=== PATIENT | female | born 1955 | race African-American/Black ===

== ENCOUNTER 2016-10-08 07:35 | Observation (INO) | payer BC ==
[~2016-10-08] VITALS: Ht 152.4 cm; Wt 61.5 kg
--- NOTE | 2016-10-08 07:52 | PHYS DOC ---
Adult General Chief Complaint Chief Complaint: ABDOMINAL PAIN HPI HPI Patient is a 61 year old female who presents with epigastric pain. She states it started overnight where she was at work its sharp comes and goes and lasts about 3-5 minutes, she states nothing she does make some better or worse. She denies any shortness of breath or nausea with this but did state it radiates up into her chest. She states she has past medical history hypertension, dyslipidemia, type 2 diabetes. She denies any history of smoking. She denies she ever had any cardiac workup in the past. Currently she denies any pain. She has had a hysterectomy secondary to a "tumor". Review of Systems Review of Systems Constitutional: Denies fever or chills [] Eyes: Denies change in visual acuity, redness, or eye pain [] HENT: Denies nasal congestion or sore throat [] Respiratory: Denies cough or shortness of breath [] Cardiovascular: No additional information not addressed in HPI [] GI: Denies abdominal pain, nausea, vomiting, bloody stools or diarrhea [] : Denies dysuria or hematuria [] Musculoskeletal: Denies back pain or joint pain [] Integument: Denies rash or skin lesions [] Neurologic: Denies headache, focal weakness or sensory changes [] Endocrine: Denies polyuria or polydipsia [] Current Medications Current Medications Current Medications Medications (Trade) Dose Ordered Sig/Esteban Start Time Stop Time Status Last Admin Dose Admin Aspirin (Children'S Aspirin) 324 mg 1X ONCE 10/08/16 08:30 10/08/16 08:31 DC 10/08/16 08:31 324 MG Nitroglycerin (Nitrostat) 0.4 mg PRN Q5MIN PRN 10/08/16 08:15 10/09/16 08:14 10/08/16 08:32 0.4 MG Allergies Allergies Allergies Coded Allergies Type Severity Reaction Last Updated Verified morphine Allergy Intermediate Unknown 10/08/16 Yes Physical Exam Physical Exam Constitutional: Well developed, well nourished, no acute distress, non-toxic appearance. [] HENT: Normocephalic, atraumatic, bilateral external ears normal, oropharynx moist, no oral exudates, nose normal. [] Eyes: PERRLA, EOMI, conjunctiva normal, no discharge. [] Neck: Normal range of motion, no tenderness, supple, no stridor. [] Cardiovascular:Heart rate regular rhythm, no murmur [] Lungs & Thorax: Bilateral breath sounds clear to auscultation [] Abdomen: Bowel sounds normal, soft, no tenderness, no masses, no pulsatile masses. [] Skin: Warm, dry, no erythema, no rash. [] Back: No tenderness, no CVA tenderness. [] Extremities: No tenderness, no cyanosis, no clubbing, ROM intact, no edema. [] Neurologic: Alert and oriented X 3, normal motor function, normal sensory function, no focal deficits noted. [] Psychologic: Affect normal, judgement normal, mood normal. [] Current Patient Data Vital Signs Vital Signs Date Time Temp Pulse Resp B/P (MAP) Pulse Ox O2 Delivery O2 Flow Rate FiO2 10/08/16 08:32 96 181/98 10/08/16 07:40 98.2 18 98 Room Air 98.2 Lab Values Laboratory Tests Test 10/08/16 07:40 10/08/16 08:00 Urine Collection Type Unknown Urine Color Yellow Urine Clarity Clear Urine pH 7.5 Urine Specific [place] 1.015 Urine Protein Negative mg/dL (NEG-TRACE) Urine Glucose (UA) Negative mg/dL (NEG) Urine Ketones (Stick) Negative mg/dL (NEG) Urine Blood Negative (NEG) Urine Nitrite Negative (NEG) Urine Bilirubin Negative (NEG) Urine Urobilinogen Dipstick 0.2 mg/dL (0.2 mg/dL) Urine Leukocyte Esterase Negative (NEG) Urine RBC 0 /HPF (0-2) Urine WBC 0 /HPF (0-4) Urine Bacteria 0 /HPF (0-FEW) Urine Opiates Screen Neg (NEG) Urine Methadone Screen Neg (NEG) Urine Barbiturates Neg (NEG) Urine Phencyclidine Screen Neg (NEG) Urine Amphetamine/Methamphetamine Neg (NEG) Urine Benzodiazepines Screen Neg (NEG) Urine Cocaine Screen Neg (NEG) Urine Cannabinoids Screen Neg (NEG) Urine Ethyl Alcohol Neg (NEG) White Blood Count 8.0 x10^3/uL (4.0-11.0) Red Blood Count 4.50 x10^6/uL (3.50-5.40) Hemoglobin 12.9 g/dL (12.0-15.5) Hematocrit 39.3 % (36.0-47.0) Mean Corpuscular Volume 87 fL (79-100) Mean Corpuscular Hemoglobin 29 pg (25-35) Mean Corpuscular Hemoglobin Concent 33 g/dL (31-37) Red Cell Distribution Width 13.2 % (11.5-14.5) Platelet Count 289 x10^3/uL (140-400) Neutrophils (%) (Auto) 84 % (31-73) H Lymphocytes (%) (Auto) 12 % (24-48) L Monocytes (%) (Auto) 4 % (0-9) Eosinophils (%) (Auto) 0 % (0-3) Basophils (%) (Auto) 0 % (0-3) Neutrophils # (Auto) 6.7 x10^3uL (1.8-7.7) Lymphocytes # (Auto) 1.0 x10^3/uL (1.0-4.8) Monocytes # (Auto) 0.3 x10^3/uL (0.0-1.1) Eosinophils # (Auto) 0.0 x10^3/uL (0.0-0.7) Basophils # (Auto) 0.0 x10^3/uL (0.0-0.2) Prothrombin Time 11.7 SEC (11.7-14.0) Prothrombin Time INR 0.9 (0.8-1.1) Sodium Level 143 mmol/L (136-145) Potassium Level 4.7 mmol/L (3.5-5.1) Chloride Level 102 mmol/L (98-107) Carbon Dioxide Level 33 mmol/L (21-32) H Anion Gap 8 (6-14) Blood Urea Nitrogen 15 mg/dL (7-20) Creatinine 0.7 mg/dL (0.6-1.0) Estimated GFR (Cockcroft-Gault) 102.6 Glucose Level 132 mg/dL (70-99) H Calcium Level 9.8 mg/dL (8.5-10.1) Magnesium Level 1.7 mg/dL (1.8-2.4) L Total Bilirubin 0.2 mg/dL (0.2-1.0) Direct Bilirubin 0.1 mg/dL (0.0-0.2) Aspartate Amino Transferase (AST) 18 U/L (15-37) Alanine Aminotransferase (ALT) 22 U/L (14-59) Alkaline Phosphatase 137 U/L (46-116) H Creatine Kinase 188 U/L (26-192) Creatine Kinase MB (Mass) 1.4 ng/mL (0.0-3.6) Creatine Kinase MB Relative Index 0.7 % (0-4) Troponin I Quantitative < 0.017 ng/mL (0.000-0.055) PZ-Mmz-D-Type Natriuretic Peptide 150 pg/mL (0-124) H Total Protein 7.4 g/dL (6.4-8.2) Albumin 4.2 g/dL (3.4-5.0) Lipase 175 U/L (73-393) Laboratory Tests 10/08/16 08:00 Laboratory Tests 10/08/16 08:00 EKG EKG EKG shows sinus rhythm with rate of [address] elevations or T-wave inversions, normal axis, QTC 427 ms, as interpreted by me. Radiology/Procedures Radiology/Procedures [facility] [address] [place] [address] IMAGING REPORT Signed PATIENT: BENITO SWEENEY ACCOUNT: [id number] : 1955 LOCATION: ER AGE: 61 SEX: F EXAM STATUS: PRE ER ORD. PHYSICIAN: MUKUND GANDHI MD REASON: chest pain PROCEDURE: PORTABLE CHEST 1V Indication: Chest pain today. Technique: Upright portable chest radiograph was obtained. Comparison is from September 30, 2010. Findings: The lungs are clear. The cardiopulmonary silhouette is within normal limits. The bony structures are intact. Leads overlie the patient. Impression: No active pulmonary disease. DICTATED and SIGNED BY: ELIZABET BECKFORD MD DATE: 10/08/16818 CC: MUKUND GANDHI MD; LONG VILLATORO MD ~ Impressions: Chest pain Type 2 diabetes Hypertension Dyslipidemia Course & Med Decision Making Course & Med Decision Making Pertinent Labs and Imaging studies reviewed. (See chart for details) Labs, EKG did not show any acute abnormality's. Patient was given aspirin is being admitted for chest pain rule out. I'm not sure that her epigastric pain is not cardiac in nature. Patient's agreeable plan. Spoke with Dr. Octavia benjamin who wants patient presented to Dr. Villatoro for admission orders. He also recommends cardiology consultation. Dragon Disclaimer Dragon Disclaimer This electronic medical record was generated, in whole or in part, using a voice recognition dictation system. Departure Departure Impression: Primary Impression: Chest pain Disposition: 09 ADMITTED INPATIENT Admitting Physician: Long Villatoro Condition: STABLE Referrals: LONG VILLATORO MD (PCP) Problem Qualifiers Primary Impression: Chest pain Chest pain type: unspecified Qualified Codes: R07.9 - Chest pain, unspecified MUKUND GANDHI MD Oct 08, 2016 07:52
--- NOTE | 2016-10-08 08:09 | EKG ---
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
[2016-10-08] MEDS ORDERED: NITROGLYCERIN SUBLINGUAL 0.4 MG BOTTLE OF 25. SL PRN (08:15)
--- NOTE | 2016-10-08 08:22 | RAD ---
Indication: Chest pain today. Technique: Upright portable chest radiograph was obtained. Comparison is from September 30, 2010. Findings: The lungs are clear. The cardiopulmonary silhouette is within normal limits. The bony structures are intact. Leads overlie the patient. Impression: No active pulmonary disease.
[2016-10-08 08:30] LABS: BASO % 0 % (0-3); EOS % 0 % (0-3); HEMATOCRIT 39.3 % (36.0-47.0); HEMOGLOBIN 12.9 g/dL (12.0-15.5); LYMPH % 12 % (24-48); MEAN CORPUSCULAR HEMOGLOBIN 29 pg (25-35); MEAN CORPUSCULAR HGB CONC 33 g/dL (31-37); MEAN CORPUSCULAR VOLUME 87 fL (79-100); MONO % 4 % (0-9); NEUT % 84 % (31-73); PLATELET COUNT 289 x10^3/uL (140-400); RED CELL DISTRIBUTION WIDTH 13.2 % (11.5-14.5)
[2016-10-08] MEDS ORDERED: ASPIRIN CHEWABLE 81 MG TABLET. PO ONE (08:30)
[2016-10-08 08:32] LABS: BILIRUBIN,URINE NEGATIVE (NEG); GLUCOSE,URINE NEGATIVE (NEG); NITRITE,URINE NEGATIVE (NEG); PH,URINE 7.5; PROTEIN,URINE NEGATIVE (NEG-TRACE); UROBILINOGEN,URINE 0.2 mg/dL (0.2 mg/dL)
[2016-10-08 08:33] LABS: CALCIUM 9.8 mg/dL (8.5-10.1); CREATININE 0.7 mg/dL (0.6-1.0); GFR 102.6; POTASSIUM 4.7 mmol/L (3.5-5.1)
[2016-10-08 08:38] LABS: BARBITURATES NEG (NEG); BENZODIAZEPINES NEG (NEG); CANNABINOIDS NEG (NEG); COCAINE NEG (NEG); METHADONE NEG (NEG); OPIATES NEG (NEG); PHENCYCLIDINE NEG (NEG)
[2016-10-08 08:38] LABS: ALBUMIN 4.2 g/dL (3.4-5.0); DIRECT BILIRUBIN 0.1 mg/dL (0.0-0.2); MAGNESIUM 1.7 mg/dL (1.8-2.4); TOTAL BILIRUBIN 0.2 mg/dL (0.2-1.0); TOTAL PROTEIN 7.4 g/dL (6.4-8.2)
[2016-10-08 08:46] LABS: CKMB MASS 1.4 ng/mL (0.0-3.6)
[2016-10-08 09:45] LABS: BACTERIA,URINE 0 /HPF (0-FEW); RBC,URINE 0 /HPF (0-2); WBC,URINE 0 /HPF (0-4)
[2016-10-08 09:46] LABS: INR 0.9 (0.8-1.1); PROTHROMBIN TIME PATIENT 11.7 SEC (11.7-14.0)
[2016-10-08] MEDS ORDERED: ONDANSETRON PF 4 MG/2 ML VIAL. IV PRN (10:15)
[2016-10-08] MEDS ORDERED: LIDO:MAALOX:DONNATAL 1:1:1 15 ML SINGLE DOSE SWSW ONE (11:00)
--- NOTE | 2016-10-08 11:17 | PDOC2 ---
NIECY PALOMINO WELT MAKER 10/08/16 1117: CARDIAC CONSULT DATE OF CONSULT Date of Consult DATE: 10/08/16 TIME: 11:10 REASON FOR CONSULT Reason for Consult: Chest pain REFERRING PHYSICIAN Referring Physician: Romelia SOURCE Source: Chart review, Patient HISTORY OF PRESENT ILLNESS HISTORY OF PRESENT ILLNESS This is a pleasant 61 yo female admitted for complains of epigastric and chest pain. Reports that she has been having epigastric tenderness but mainly when she eats spicy food which is almost all the time. Yesterday this became severe that it thread to her chest to her throat area. No notable palpitations, SOA, ARNOLD, or vomiting. She has been taking zyrtec for it but no pepcid or PPI. Denies any CAD, VTE, falls or injury. She has DM but verbalized control but she does not check her BP. PAST MEDICAL HISTORY Cardiovascular: HTN, Hyperlipidemia Pulmonary: No pertinent hx CENTRAL NERVOUS SYSTEM: Other (No pertinent history) GI: GERD Heme/Onc: No pertinent hx Hepatobiliary: No pertinent hx Psych: No pertinent hx Musculoskeletal: Osteoarthritis Rheumatologic: No pertinent hx Infectious disease: No pertinent hx ENT: No pertinent hx Renal/: No pertinent hx Endocrine: Diabetes (2) Dermatology: No pertinent hx PAST SURGICAL HISTORY Past Surgical History: Hysterectomy FAMILY HISTORY Family History: Heart Disease (mother) SOCIAL HISTORY Smoke: No ALCOHOL: none Drugs: None Lives: with Family CURRENT MEDICATIONS CURRENT MEDICATIONS Current Medications Medications (Trade) Dose Ordered Sig/Esteban Route PRN Reason Start Time Stop Time Status Last Admin Dose Admin Aspirin (Children'S Aspirin) 324 mg 1X ONCE PO 10/08/16 08:30 10/08/16 08:31 DC 10/08/16 08:31 Nitroglycerin (Nitrostat) 0.4 mg PRN Q5MIN PRN SL CP RATING > 1/10 10/08/16 08:15 10/09/16 08:14 10/08/16 08:32 Multi-Ingredient Mouthwash/Gargle (Gi Cocktail Single Dose) 15 ml 1X ONCE SWSW 10/08/16 11:00 10/08/16 11:01 DC 10/08/16 10:36 ALLERGIES ALLERGIES: Coded Allergies: morphine (Verified Allergy, Intermediate, Unknown, 10/08/16) Pt unsure of reaction. ROS Review of System 14 point ROS evaluated with pertinent positives noted per HPI PHYSICAL EXAM General: Alert, Oriented X3, Cooperative, No acute distress HEENT: Atraumatic, Mucous membr. moist/pink Lungs: Clear to auscultation, Normal air movement Heart: Regular rate (SR), Normal S1, Normal S2, No murmurs Abdomen: Soft, No tenderness Extremities: No cyanosis, No edema Skin: No breakdown, No significant lesion Neuro: Normal speech, Sensation intact Psych/Mental Status: Mental status NL, Mood NL MUSCULOSKELETAL: Osteoarthritic changes both hands VITALS VITALS Vital Signs Date Time Temp Pulse Resp B/P (MAP) Pulse Ox O2 Delivery O2 Flow Rate FiO2 10/08/16 10:52 91 18 167/83 (111) 98 Room Air 10/08/16 07:40 98.2 98.2 LABS Lab: Laboratory Tests Test 10/08/16 07:40 10/08/16 08:00 Urine Collection Type Unknown Urine Color Yellow Urine Clarity Clear Urine pH 7.5 Urine Specific [place] 1.015 Urine Protein Negative mg/dL (NEG-TRACE) Urine Glucose (UA) Negative mg/dL (NEG) Urine Ketones (Stick) Negative mg/dL (NEG) Urine Blood Negative (NEG) Urine Nitrite Negative (NEG) Urine Bilirubin Negative (NEG) Urine Urobilinogen Dipstick 0.2 mg/dL (0.2 mg/dL) Urine Leukocyte Esterase Negative (NEG) Urine RBC 0 /HPF (0-2) Urine WBC 0 /HPF (0-4) Urine Bacteria 0 /HPF (0-FEW) Urine Opiates Screen Neg (NEG) Urine Methadone Screen Neg (NEG) Urine Barbiturates Neg (NEG) Urine Phencyclidine Screen Neg (NEG) Urine Amphetamine/Methamphetamine Neg (NEG) Urine Benzodiazepines Screen Neg (NEG) Urine Cocaine Screen Neg (NEG) Urine Cannabinoids Screen Neg (NEG) Urine Ethyl Alcohol Neg (NEG) White Blood Count 8.0 x10^3/uL (4.0-11.0) Red Blood Count 4.50 x10^6/uL (3.50-5.40) Hemoglobin 12.9 g/dL (12.0-15.5) Hematocrit 39.3 % (36.0-47.0) Mean Corpuscular Volume 87 fL (79-100) Mean Corpuscular Hemoglobin 29 pg (25-35) Mean Corpuscular Hemoglobin Concent 33 g/dL (31-37) Red Cell Distribution Width 13.2 % (11.5-14.5) Platelet Count 289 x10^3/uL (140-400) Neutrophils (%) (Auto) 84 % (31-73) Lymphocytes (%) (Auto) 12 % (24-48) Monocytes (%) (Auto) 4 % (0-9) Eosinophils (%) (Auto) 0 % (0-3) Basophils (%) (Auto) 0 % (0-3) Neutrophils # (Auto) 6.7 x10^3uL (1.8-7.7) Lymphocytes # (Auto) 1.0 x10^3/uL (1.0-4.8) Monocytes # (Auto) 0.3 x10^3/uL (0.0-1.1) Eosinophils # (Auto) 0.0 x10^3/uL (0.0-0.7) Basophils # (Auto) 0.0 x10^3/uL (0.0-0.2) Prothrombin Time 11.7 SEC (11.7-14.0) Prothromb Time International Ratio 0.9 (0.8-1.1) Sodium Level 143 mmol/L (136-145) Potassium Level 4.7 mmol/L (3.5-5.1) Chloride Level 102 mmol/L (98-107) Carbon Dioxide Level 33 mmol/L (21-32) Anion Gap 8 (6-14) Blood Urea Nitrogen 15 mg/dL (7-20) Creatinine 0.7 mg/dL (0.6-1.0) Estimated GFR (Cockcroft-Gault) 102.6 Glucose Level 132 mg/dL (70-99) Calcium Level 9.8 mg/dL (8.5-10.1) Magnesium Level 1.7 mg/dL (1.8-2.4) Total Bilirubin 0.2 mg/dL (0.2-1.0) Direct Bilirubin 0.1 mg/dL (0.0-0.2) Aspartate Amino Transf (AST/SGOT) 18 U/L (15-37) Alanine Aminotransferase (ALT/SGPT) 22 U/L (14-59) Alkaline Phosphatase 137 U/L (46-116) Creatine Kinase 188 U/L (26-192) Creatine Kinase MB (Mass) 1.4 ng/mL (0.0-3.6) Creatine Kinase MB Relative Index 0.7 % (0-4) Troponin I Quantitative < 0.017 ng/mL (0.000-0.055) [id number]-[id number]-Type Natriuretic Peptide 150 pg/mL (0-124) Total Protein 7.4 g/dL (6.4-8.2) Albumin 4.2 g/dL (3.4-5.0) Lipase 175 U/L (73-393) ASSESSMENT/PLAN ASSESSMENT/PLAN 1. Atypical CP: likely GERD exacerbation 2. Accelerated HTN: possible hypertensive heart disease 3. HLP 4. DM2 Recommendations 1. Resume lisinopril and HCTZ. Add norvasc. Labetolol IV PRN. 2. Daily ECASA. PPI. Replace Mg 3. TSH, lipids, A1C. TTE in AM. Trend troponin 4. Discussed GERD prevention Problems: KEVEN GAN MD 10/08/16 1250: CARDIAC CONSULT ALLERGIES ALLERGIES: Coded Allergies: morphine (Verified Allergy, Intermediate, Unknown, 10/08/16) Pt unsure of reaction. ASSESSMENT/PLAN ASSESSMENT/PLAN Patient seen and examined. Agree with CLOTH BALE HEADER's assessment and plan. CP with atypical features and most probably GI etiology. Resume home meds and add norvasc for better BP control. Check 2D echo to assess LV function and rule out WMA. Thank you for your consultation. Problems: NIECY PALOMINO APRN Oct 08, 2016 11:17 KEVEN GNA MD Oct 08, 2016 12:50
[2016-10-08] MEDS ORDERED: MAGNESIUM SULFATE 2GM 50 ML IV ONE (11:30)
[2016-10-08 11:49] LABS: CHOLESTEROL/HDL RATIO 1.9
[2016-10-08 12:08] VITALS: BP 174/89
[2016-10-08] MEDS ORDERED: LABETALOL 20 MG/4 ML DISP.SYRIN. IVP PRN (12:15)
[2016-10-08] MEDS: LISINOPRIL 40 MG TABLET. PO SCH (13:00)
[2016-10-08] MEDS: amLODIPine BESYLATE 10 MG TABLET PO SCH (13:00)
[2016-10-08] MEDS: hydroCHLOROthiazide 12.5 MG CAPSULE PO SCH (13:00)
--- NOTE | 2016-10-08 14:29 | PDOC ---
Provider Note Provider Note Pt seen.H&P dictated. #[id number] PRATIK CONDE MD Oct 08, 2016 14:29
[2016-10-08] MEDS ORDERED: DEXTROSE 50% 25 GM / 50ML DISP.SYRIN. IV PRN (14:30)
[2016-10-08 14:54] VITALS: BP 153/94
[2016-10-08] MEDS ORDERED: LIDO:MAALOX:DONNATAL 1:1:1 15 ML SINGLE DOSE SWSW PRN (15:45)
--- NOTE | 2016-10-08 15:46 | HP ---
ADMIT DATE: 10/08/2016 LOCATION: 246. ATTENDING PHYSICIAN: Magalie Villatoro MD. REASON FOR ADMISSION TO THE HOSPITAL: Chest pain. HISTORY OF PRESENT ILLNESS: The patient is a 61-year-old female with history of diabetes, hypertension, hyperlipidemia, patient of Dr. Magalie Villatoro. She was having epigastric pain started this morning that progressively worse and could not sleep well. This morning, came to the Emergency Room. EKG negative for ischemia. Troponin was negative, was admitted to the hospital. She has risk factors including diabetes, hypertension, hyperlipidemia. PAST MEDICAL HISTORY: Hypertension, hyperlipidemia, GERD symptoms. PAST SURGICAL HISTORY: She had hysterectomy and a lump in the left breast biopsied, was negative. PERSONAL HISTORY: No history of smoking, alcohol, drug abuse or spicy foods. FAMILY HISTORY: Mother has heart disease. ALLERGIES: To MORPHINE. MEDICATIONS AT HOME: She takes Lantus 20, lisinopril 40 with 12.5 hydrochlorothiazide, pravastatin 20 mg daily, metformin 500 mg twice daily. REVIEW OF SYMPTOMS: RESPIRATORY: Denies any shortness of breath. GASTROINTESTINAL: Has some heartburn symptoms. Denies any diarrhea or blood in the stools. Rest of the 14-system was reviewed and negative. PHYSICAL EXAMINATION: GENERAL: The patient is not in any distress, comfortable, has some coughing spells. VITAL SIGNS: Temperature 98, pulse 93, respirations 18, blood pressure 200/97, 98 on room air. HEENT: Head is atraumatic. Pupils equal. Oral cavity: No congestion. NECK: Supple. Thyroid not enlarged. JVD not elevated. CHEST: Symmetrical. CARDIOVASCULAR: S1, S2. No murmurs. LUNGS: Clear to auscultation. No wheezing. ABDOMEN: Soft, no mass palpable. EXTERNAL GENITALIA: No Fair. RECTAL: Deferred. EXTREMITIES: No calf tenderness, no edema. NEUROLOGIC: Cranial nerves intact. Power 5/5. Moving all extremities. LABORATORY DATA: Shows a white count of 8, hemoglobin 13, platelets 285. Electrolytes show sodium 143, potassium 4.7, chloride 102, bicarbonate 33, BUN 15, creatinine 0.7, glucose 132, magnesium 1.7. LFTs were normal. Lipase was normal TSH was good. INR 11.7. UA was negative. Chest x-ray, no acute pulmonary disease. EKG, no acute ischemic changes. FINAL IMPRESSION: 1. Chest pain for evaluation. 2. Symptoms look like gastroesophageal reflux disease. 3. Insulin-dependent diabetes. 4. Hypertension. 5. Hyperlipidemia. PLAN: At this time, was admitted to the hospital. Cardiology was consulted. Serial cardiac enzymes, EKG, Echo and stress test out pt if no other etiology for CP. Has also had a GI consult. we will do a gallbladder sonogram to make sure there are no gallstones causing problems. PRATIK CONDE MD DR: MELISSA/evita JOB#: [id number] / [id number] MAGALIE Duffy MD [facility]
[2016-10-08] MEDS: PANTOPRAZOLE 40 MG TABLET.DR. PO SCH (16:08)
[2016-10-08] MEDS: INSULIN ASPART 300 UNITS/3 ML INSULN.PEN SQ SCH (17:00)
[2016-10-08] MEDS: metFORMIN 500 MG TABLET PO SCH (18:23)
[2016-10-08 19:55] VITALS: BP 152/90
[2016-10-08] MEDS ORDERED: SIMVASTATIN 20 MG TABLET PO SCH (21:00)
[2016-10-08] MEDS ORDERED: INSULIN DETEMIR 300 UNITS/3 ML INSULN.PEN. SQ SCH (21:00)
[2016-10-08 23:01] VITALS: BP 113/58
[2016-10-09 02:26] VITALS: BP 115/62
[2016-10-09 05:55] LABS: BASO % 0 % (0-3); CALCIUM 10.4 mg/dL (8.5-10.1); CREATININE 0.6 mg/dL (0.6-1.0); EOS % 0 % (0-3); GFR 122.6; HEMATOCRIT 39.7 % (36.0-47.0); HEMOGLOBIN 13.4 g/dL (12.0-15.5); LYMPH # 3.1 x10^3/uL (1.0-4.8); LYMPH % 28 % (24-48); MEAN CORPUSCULAR HEMOGLOBIN 29 pg (25-35); MEAN CORPUSCULAR HGB CONC 34 g/dL (31-37); MEAN CORPUSCULAR VOLUME 86 fL (79-100); MONO % 7 % (0-9); NEUT % 64 % (31-73); PLATELET COUNT 332 x10^3/uL (140-400); POTASSIUM 4.2 mmol/L (3.5-5.1); RED BLOOD COUNT 4.61 x10^6/uL (3.50-5.40); RED CELL DISTRIBUTION WIDTH 13.2 % (11.5-14.5); WHITE BLOOD COUNT 11.1 x10^3/uL (4.0-11.0)
[2016-10-09 07:14] VITALS: BP 112/68
[2016-10-09] MEDS: metFORMIN 500 MG TABLET PO SCH (08:00)
[2016-10-09] MEDS: INSULIN ASPART 300 UNITS/3 ML INSULN.PEN SQ SCH ×2 (08:00→12:00)
[2016-10-09] MEDS ORDERED: ASPIRIN ENTERIC COATED 81 MG TABLET.DR. PO SCH (08:00)
[2016-10-09] MEDS: amLODIPine BESYLATE 10 MG TABLET PO SCH (09:00)
[2016-10-09 10:53] VITALS: BP 118/65
[2016-10-09] MEDS: hydroCHLOROthiazide 12.5 MG CAPSULE PO SCH (10:54)
[2016-10-09] MEDS: PANTOPRAZOLE 40 MG TABLET.DR. PO SCH (10:54)
[2016-10-09 10:55] VITALS: BP 118/65
[2016-10-09] MEDS: LISINOPRIL 40 MG TABLET. PO SCH (10:55)
--- NOTE | 2016-10-09 12:30 | PDOC ---
PROGRESS NOTES Subjective Subjective CP better Objective Objective Vital Signs Date Time Temp Pulse Resp B/P (MAP) Pulse Ox O2 Delivery O2 Flow Rate FiO2 10/09/16 10:55 79 118/65 10/09/16 10:53 98.6 18 96 Room Air 98.6 Intake and Output 10/09/16 07:00 Intake Total 1320 ml Output Total 2200 ml Balance -880 ml Intake Oral 1320 ml Output Urine Total 2200 ml Physical Exam Abdomen: Soft, No tenderness Heart: Regular rate (SR), Normal S1, Normal S2, No murmurs Extremities: No cyanosis, No edema General: Alert, Oriented X3, Cooperative, No acute distress HEENT: Atraumatic, Mucous membr. moist/pink Lungs: Clear to auscultation, Normal air movement Neuro: Normal speech, Sensation intact Psych/Mental Status: Mental status NL, Mood NL Skin: No breakdown, No significant lesion Assessment Assessment 1. Atypical CP: likely GERD exacerbation. MN ruled out. 2D echo to rule out wall motion abnormalities pending 2. Accelerated HTN: better controlled since admission 3. HLP - statins 4. DM2 - per IM Plan Plan of Care Problems Medical Problems: (1) Chest pain Status: Acute Comment Review of Relevant I have reviewed the following items jayden (where applicable) has been applied. Labs Laboratory Tests Test 10/08/16 13:09 10/08/16 16:15 10/08/16 16:46 10/08/16 20:50 Glucose (Fingerstick) 90 mg/dL (70-99) 87 mg/dL (70-99) 85 mg/dL (70-99) Troponin I Quantitative < 0.017 ng/mL (0.000-0.055) Test 10/08/16 22:00 10/09/16 04:00 10/09/16 07:17 Troponin I Quantitative < 0.017 ng/mL (0.000-0.055) White Blood Count 11.1 x10^3/uL (4.0-11.0) Red Blood Count 4.61 x10^6/uL (3.50-5.40) Hemoglobin 13.4 g/dL (12.0-15.5) Hematocrit 39.7 % (36.0-47.0) Mean Corpuscular Volume 86 fL (79-100) Mean Corpuscular Hemoglobin 29 pg (25-35) Mean Corpuscular Hemoglobin Concent 34 g/dL (31-37) Red Cell Distribution Width 13.2 % (11.5-14.5) Platelet Count 332 x10^3/uL (140-400) Neutrophils (%) (Auto) 64 % (31-73) Lymphocytes (%) (Auto) 28 % (24-48) Monocytes (%) (Auto) 7 % (0-9) Eosinophils (%) (Auto) 0 % (0-3) Basophils (%) (Auto) 0 % (0-3) Neutrophils # (Auto) 7.2 x10^3uL (1.8-7.7) Lymphocytes # (Auto) 3.1 x10^3/uL (1.0-4.8) Monocytes # (Auto) 0.8 x10^3/uL (0.0-1.1) Eosinophils # (Auto) 0.0 x10^3/uL (0.0-0.7) Basophils # (Auto) 0.0 x10^3/uL (0.0-0.2) Sodium Level 141 mmol/L (136-145) Potassium Level 4.2 mmol/L (3.5-5.1) Chloride Level 100 mmol/L (98-107) Carbon Dioxide Level 33 mmol/L (21-32) Anion Gap 8 (6-14) Blood Urea Nitrogen 12 mg/dL (7-20) Creatinine 0.6 mg/dL (0.6-1.0) Estimated GFR (Cockcroft-Gault) 122.6 Glucose Level 43 mg/dL (70-99) Calcium Level 10.4 mg/dL (8.5-10.1) Glucose (Fingerstick) 74 mg/dL (70-99) Medications Current Medications Amlodipine Besylate (Norvasc) 10 mg DAILY PO ; Start 10/08/16 at 13:00 Aspirin (Ecotrin) 81 mg DAILYWBKFT PO Last administered on 10/09/16 10:54; Start 10/09/16 at 08:00 Dextrose (Dextrose 50%-Water Syringe) 12.5 gm PRN Q15MIN PRN IV SEE COMMENTS; Start 10/08/16 at 14:30 Hydrochlorothiazide (Microzide) 12.5 mg DAILY PO Last administered on 10:54; Start 10/08/16 at 13:00 Insulin Aspart (NovoLOG) 0-7 UNITS TIDWMEALS SQ ; Start 10/08/16 at 17:00 Insulin Detemir (Levemir) 20 units QHS SQ Last administered on 10/08/16 21:07 ; Start 10/08/16 at 21:00 Lisinopril (Prinivil) 40 mg DAILY PO Last administered on 10/09/16 10:55; Start 10/08/16 at 13:00 Metformin HCl (Glucophage) 500 mg BIDWMEALS PO Last administered on 10/08/16 18:23; Start 10/08/16 at 17:00 Multi-Ingredient Mouthwash/Gargle (Gi Cocktail Single Dose) 30 ml PRN QID PRN SWSW CHEST PAIN; Start 10/08/16 at 15:45 Pantoprazole Sodium (Protonix) 40 mg DAILYAC PO Last administered on 10/09/16 10:54; Start 10/08/16 at 13:00 Simvastatin (Zocor) 20 mg HS PO Last administered on 10/08/16 21:04; Start at 21:00 Vitals/I & O Vital Sign - Last 24 Hours 10/08/16 10/08/16 10/08/16 10/08/16 14:54 19:30 19:55 23:01 Temp 99.8 99.7 99.3 99.8 99.7 99.3 Pulse 85 80 85 Resp 18 18 20 B/P (MAP) 153/94 (113) 152/90 (110) 113/58 (76) Pulse Ox 95 96 O2 Delivery Room Air Room Air Room Air Room Air 10/09/16 10/09/16 10/09/16 10/09/16 02:26 07:14 08:00 10:53 Temp 99.2 98.2 98.6 99.2 98.2 98.6 Pulse 89 89 86 Resp 18 18 18 B/P (MAP) 115/62 (79) 112/68 (83) 118/65 (82) Pulse Ox 96 97 96 O2 Delivery Room Air Room Air Room Air Room Air 10/09/16 10:55 Pulse 79 B/P (MAP) 118/65 Intake and Output 10/08/16 10/08/16 10/09/16 15:00 23:00 07:00 Intake Total 300 ml 800 ml 220 ml Output Total 300 ml 900 ml 1000 ml Balance 0 ml -100 ml -780 ml KEVEN GAN MD Oct 09, 2016 12:30
--- NOTE | 2016-10-09 12:38 | PDOC2 ---
CONSULT Date of Consult Date of Consult DATE: 10/09/16 TIME: 12:33 Reason for Consult Reason for Consult: Cholelithiasis by U/S Referring Physician Referring Physician: Octavia Identification/Chief Complaint Chief Complaint No complaints today Problems: Source Source: Patient History of Present Illness Reason for Visit: 61 yo female admitted to the hospital with 1 day history of epigastric pain radiating into the chest. Cardiac workup negative. U/S og the abdomen showed gallstones no Pan's sign no pericholic inflammation. Past Medical History Cardiovascular: HTN, Hyperlipidemia Pulmonary: No pertinent hx CENTRAL NERVOUS SYSTEM: Other (No pertinent history) GI: GERD Heme/Onc: No pertinent hx Hepatobiliary: No pertinent hx Psych: No pertinent hx Musculoskeletal: Osteoarthritis Rheumatologic: No pertinent hx Infectious disease: No pertinent hx ENT: No pertinent hx Renal/: No pertinent hx Endocrine: Diabetes (2) Dermatology: No pertinent hx Past Surgical History Past Surgical History: Hysterectomy Family History Family History: Heart Disease (mother) Social History No ALCOHOL: none Drugs: None Lives: with Family Current Problem List Problem List Problems Medical Problems: (1) Chest pain Status: Acute Current Medications Current Medications Current Medications Aspirin (Children'S Aspirin) 324 mg 1X ONCE PO Last administered on 10/08/16 08:31; Start 10/08/16 at 08:30; Stop 10/08/16 at 08:31; Status DC Nitroglycerin (Nitrostat) 0.4 mg PRN Q5MIN PRN SL CP RATING > 1/10 Last administered on 10/08/16 08:32; Start 10/08/16 at 08:15; Stop 10/09/16 at 08:14 ; Status DC Ondansetron HCl (Zofran) 4 mg PRN Q8HRS PRN IV NAUSEA/VOMITING; Start 10/08/16 at 10:15; Stop 10/09/16 at 10:14; Status DC Multi-Ingredient Mouthwash/Gargle (Gi Cocktail Single Dose) 15 ml 1X ONCE SWSW Last administered on 10/08/16 10:36; Start 10/08/16 at 11:00; Stop 10/08/16 at 11:01; Status DC Magnesium Sulfate/ Dextrose 50 ml @ 25 mls/hr 1X ONCE IV Last administered on 10/08/16 16:08; Start 10/08/16 at 11:30; Stop 10/08/16 at 13:29; Status DC Aspirin (Ecotrin) 81 mg DAILYWBKFT PO Last administered on 10/09/16 10:54; Start 10/09/16 at 08:00 Lisinopril (Prinivil) 40 mg DAILY PO Last administered on 10/09/16 10:55; Start 10/08/16 at 13:00 Hydrochlorothiazide (Microzide) 12.5 mg DAILY PO Last administered on 10:54; Start 10/08/16 at 13:00 Amlodipine Besylate (Norvasc) 10 mg DAILY PO ; Start 10/08/16 at 13:00 Pantoprazole Sodium (Protonix) 40 mg DAILYAC PO Last administered on 10/09/16 10:54; Start 10/08/16 at 13:00 Labetalol HCl (Normodyne) 20 mg PRN Q2HR PRN IVP HYPERTENSION, SEE COMMENTS; Start 10/08/16 at 12:15 Insulin Aspart (NovoLOG) 0-7 UNITS TIDWMEALS SQ ; Start 10/08/16 at 17:00 Dextrose (Dextrose 50%-Water Syringe) 12.5 gm PRN Q15MIN PRN IV SEE COMMENTS; Start 10/08/16 at 14:30 Insulin Detemir (Levemir) 20 units QHS SQ Last administered on 10/08/16 21:07 ; Start 10/08/16 at 21:00 Simvastatin (Zocor) 20 mg HS PO Last administered on 10/08/16 21:04; Start at 21:00 Multi-Ingredient Mouthwash/Gargle (Gi Cocktail Single Dose) 30 ml PRN QID PRN SWSW CHEST PAIN; Start 10/08/16 at 15:45 Metformin HCl (Glucophage) 500 mg BIDWMEALS PO Last administered on 10/08/16 18:23; Start 10/08/16 at 17:00 Allergies Allergies: Coded Allergies: morphine (Verified Allergy, Intermediate, Unknown, 10/08/16) Pt unsure of reaction. Physical Exam General: Alert, Oriented X3, Cooperative, No acute distress HEENT: Atraumatic, EOMI Lungs: Clear to auscultation, Normal air movement Heart: Regular rate, No murmurs Abdomen: Normal bowel sounds, Soft, No tenderness Extremities: No edema Skin: No significant lesion Neuro: Normal speech Psych/Mental Status: Mental status NL Vitals VITALS Vital Signs Date Time Temp Pulse Resp B/P (MAP) Pulse Ox O2 Delivery O2 Flow Rate FiO2 10/09/16 10:55 79 118/65 10/09/16 10:53 98.6 18 96 Room Air 98.6 Labs Labs Laboratory Tests Test 10/08/16 07:40 10/08/16 08:00 10/08/16 13:09 10/08/16 16:15 Urine Collection Type Unknown Urine Color Yellow Urine Clarity Clear Urine pH 7.5 Urine Specific [place] 1.015 Urine Protein Negative mg/dL (NEG-TRACE) Urine Glucose (UA) Negative mg/dL (NEG) Urine Ketones (Stick) Negative mg/dL (NEG) Urine Blood Negative (NEG) Urine Nitrite Negative (NEG) Urine Bilirubin Negative (NEG) Urine Urobilinogen Dipstick 0.2 mg/dL (0.2 mg/dL) Urine Leukocyte Esterase Negative (NEG) Urine RBC 0 /HPF (0-2) Urine WBC 0 /HPF (0-4) Urine Bacteria 0 /HPF (0-FEW) Urine Opiates Screen Neg (NEG) Urine Methadone Screen Neg (NEG) Urine Barbiturates Neg (NEG) Urine Phencyclidine Screen Neg (NEG) Urine Amphetamine/Methamphetamine Neg (NEG) Urine Benzodiazepines Screen Neg (NEG) Urine Cocaine Screen Neg (NEG) Urine Cannabinoids Screen Neg (NEG) Urine Ethyl Alcohol Neg (NEG) White Blood Count 8.0 x10^3/uL (4.0-11.0) Red Blood Count 4.50 x10^6/uL (3.50-5.40) Hemoglobin 12.9 g/dL (12.0-15.5) Hematocrit 39.3 % (36.0-47.0) Mean Corpuscular Volume 87 fL (79-100) Mean Corpuscular Hemoglobin 29 pg (25-35) Mean Corpuscular Hemoglobin Concent 33 g/dL (31-37) Red Cell Distribution Width 13.2 % (11.5-14.5) Platelet Count 289 x10^3/uL (140-400) Neutrophils (%) (Auto) 84 % (31-73) Lymphocytes (%) (Auto) 12 % (24-48) Monocytes (%) (Auto) 4 % (0-9) Eosinophils (%) (Auto) 0 % (0-3) Basophils (%) (Auto) 0 % (0-3) Neutrophils # (Auto) 6.7 x10^3uL (1.8-7.7) Lymphocytes # (Auto) 1.0 x10^3/uL (1.0-4.8) Monocytes # (Auto) 0.3 x10^3/uL (0.0-1.1) Eosinophils # (Auto) 0.0 x10^3/uL (0.0-0.7) Basophils # (Auto) 0.0 x10^3/uL (0.0-0.2) Prothrombin Time 11.7 SEC (11.7-14.0) Prothromb Time International Ratio 0.9 (0.8-1.1) Sodium Level 143 mmol/L (136-145) Potassium Level 4.7 mmol/L (3.5-5.1) Chloride Level 102 mmol/L (98-107) Carbon Dioxide Level 33 mmol/L (21-32) Anion Gap 8 (6-14) Blood Urea Nitrogen 15 mg/dL (7-20) Creatinine 0.7 mg/dL (0.6-1.0) Estimated GFR (Cockcroft-Gault) 102.6 Glucose Level 132 mg/dL (70-99) Hemoglobin A1c 5.8 % (4.8-5.6) Calcium Level 9.8 mg/dL (8.5-10.1) Magnesium Level 1.7 mg/dL (1.8-2.4) Total Bilirubin 0.2 mg/dL (0.2-1.0) Direct Bilirubin 0.1 mg/dL (0.0-0.2) Aspartate Amino Transf (AST/SGOT) 18 U/L (15-37) Alanine Aminotransferase (ALT/SGPT) 22 U/L (14-59) Alkaline Phosphatase 137 U/L (46-116) Creatine Kinase 188 U/L (26-192) Creatine Kinase MB (Mass) 1.4 ng/mL (0.0-3.6) Creatine Kinase MB Relative Index 0.7 % (0-4) Troponin I Quantitative < 0.017 ng/mL (0.000-0.055) < 0.017 ng/mL (0.000-0.055) XC-Ftv-F-Type Natriuretic Peptide 150 pg/mL (0-124) Total Protein 7.4 g/dL (6.4-8.2) Albumin 4.2 g/dL (3.4-5.0) Triglycerides Level 27 mg/dL (0-150) Cholesterol Level 182 mg/dL (0-200) LDL Cholesterol, Calculated 79 mg/dL (0-100) VLDL Cholesterol, Calculated 5 mg/dL (0-40) Non-HDL Cholesterol Calculated 84 mg/dL (0-129) HDL Cholesterol 98 mg/dL (40-60) Cholesterol/HDL Ratio 1.9 Lipase 175 U/L (73-393) Thyroid Stimulating Hormone (TSH) 0.508 uIU/mL (0.358-3.74) Glucose (Fingerstick) 90 mg/dL (70-99) Test 10/08/16 16:46 10/08/16 20:50 10/08/16 22:00 10/09/16 04:00 Glucose (Fingerstick) 87 mg/dL (70-99) 85 mg/dL (70-99) Troponin I Quantitative < 0.017 ng/mL (0.000-0.055) White Blood Count 11.1 x10^3/uL (4.0-11.0) Red Blood Count 4.61 x10^6/uL (3.50-5.40) Hemoglobin 13.4 g/dL (12.0-15.5) Hematocrit 39.7 % (36.0-47.0) Mean Corpuscular Volume 86 fL (79-100) Mean Corpuscular Hemoglobin 29 pg (25-35) Mean Corpuscular Hemoglobin Concent 34 g/dL (31-37) Red Cell Distribution Width 13.2 % (11.5-14.5) Platelet Count 332 x10^3/uL (140-400) Neutrophils (%) (Auto) 64 % (31-73) Lymphocytes (%) (Auto) 28 % (24-48) Monocytes (%) (Auto) 7 % (0-9) Eosinophils (%) (Auto) 0 % (0-3) Basophils (%) (Auto) 0 % (0-3) Neutrophils # (Auto) 7.2 x10^3uL (1.8-7.7) Lymphocytes # (Auto) 3.1 x10^3/uL (1.0-4.8) Monocytes # (Auto) 0.8 x10^3/uL (0.0-1.1) Eosinophils # (Auto) 0.0 x10^3/uL (0.0-0.7) Basophils # (Auto) 0.0 x10^3/uL (0.0-0.2) Sodium Level 141 mmol/L (136-145) Potassium Level 4.2 mmol/L (3.5-5.1) Chloride Level 100 mmol/L (98-107) Carbon Dioxide Level 33 mmol/L (21-32) Anion Gap 8 (6-14) Blood Urea Nitrogen 12 mg/dL (7-20) Creatinine 0.6 mg/dL (0.6-1.0) Estimated GFR (Cockcroft-Gault) 122.6 Glucose Level 43 mg/dL (70-99) Calcium Level 10.4 mg/dL (8.5-10.1) Test 10/09/16 07:17 Glucose (Fingerstick) 74 mg/dL (70-99) Laboratory Tests Test 10/08/16 13:09 10/08/16 16:15 10/08/16 16:46 10/08/16 20:50 Glucose (Fingerstick) 90 mg/dL (70-99) 87 mg/dL (70-99) 85 mg/dL (70-99) Troponin I Quantitative < 0.017 ng/mL (0.000-0.055) Test 10/08/16 22:00 10/09/16 04:00 10/09/16 07:17 Troponin I Quantitative < 0.017 ng/mL (0.000-0.055) White Blood Count 11.1 x10^3/uL (4.0-11.0) Red Blood Count 4.61 x10^6/uL (3.50-5.40) Hemoglobin 13.4 g/dL (12.0-15.5) Hematocrit 39.7 % (36.0-47.0) Mean Corpuscular Volume 86 fL (79-100) Mean Corpuscular Hemoglobin 29 pg (25-35) Mean Corpuscular Hemoglobin Concent 34 g/dL (31-37) Red Cell Distribution Width 13.2 % (11.5-14.5) Platelet Count 332 x10^3/uL (140-400) Neutrophils (%) (Auto) 64 % (31-73) Lymphocytes (%) (Auto) 28 % (24-48) Monocytes (%) (Auto) 7 % (0-9) Eosinophils (%) (Auto) 0 % (0-3) Basophils (%) (Auto) 0 % (0-3) Neutrophils # (Auto) 7.2 x10^3uL (1.8-7.7) Lymphocytes # (Auto) 3.1 x10^3/uL (1.0-4.8) Monocytes # (Auto) 0.8 x10^3/uL (0.0-1.1) Eosinophils # (Auto) 0.0 x10^3/uL (0.0-0.7) Basophils # (Auto) 0.0 x10^3/uL (0.0-0.2) Sodium Level 141 mmol/L (136-145) Potassium Level 4.2 mmol/L (3.5-5.1) Chloride Level 100 mmol/L (98-107) Carbon Dioxide Level 33 mmol/L (21-32) Anion Gap 8 (6-14) Blood Urea Nitrogen 12 mg/dL (7-20) Creatinine 0.6 mg/dL (0.6-1.0) Estimated GFR (Cockcroft-Gault) 122.6 Glucose Level 43 mg/dL (70-99) Calcium Level 10.4 mg/dL (8.5-10.1) Glucose (Fingerstick) 74 mg/dL (70-99) Images Images U/S in HPI Assessment/Plan Assessment/Plan Cholelithiasis, currently asymptomatic but diabetic patient Recommended L/S Cholecystectomy but patient wishes to go home first as she has some issues to deal with and will make appointment to see me in the office for outpatient surgery. MICHELLE CORTEZ MD Oct 09, 2016 12:38
--- NOTE | 2016-10-09 13:12 | RAD ---
Indication: Epigastric pain. Technique: Ultrasound of the abdomen was performed. No comparison is available. Findings: Visualized pancreas is unremarkable. Aorta is normal caliber. IVC is patent. Liver is normal in size and echogenicity. There is cholelithiasis. The gallbladder wall does not appear thickened and there is no pericholecystic fluid. The common bile duct is within normal limits at 4 mm. Kidneys are without hydronephrosis or mass. Spleen is not enlarged. Impression: Cholelithiasis without sonographic evidence of cholecystitis.
[2016-10-09] MEDS ORDERED: INSU100I27 SQ (13:29)
[2016-10-09] MEDS ORDERED: HYDR12.53 PO (13:29)
[2016-10-09] MEDS ORDERED: PANT40TA5 PO (13:29)
[2016-10-09] MEDS ORDERED: AMLO5TAB2 PO (13:29)
[2016-10-09] MEDS ORDERED: SIMV20TA3 PO (13:29)
[2016-10-09] MEDS ORDERED: METF500T PO (13:29)
[2016-10-09] MEDS ORDERED: LISI40TA PO (13:29)
--- NOTE | 2016-10-09 14:33 | PDOC ---
PROGRESS NOTES Subjective Subjective feels better,no more chest pains Objective Objective Vital Signs Date Time Temp Pulse Resp B/P (MAP) Pulse Ox O2 Delivery O2 Flow Rate FiO2 10/09/16 10:55 79 118/65 10/09/16 10:53 98.6 18 96 Room Air 98.6 Intake and Output 10/09/16 07:00 Intake Total 1320 ml Output Total 2200 ml Balance -880 ml Intake Oral 1320 ml Output Urine Total 2200 ml Physical Exam Abdomen: Normal bowel sounds, Soft, No tenderness Heart: Regular rate, No murmurs Extremities: No edema General: Alert, Oriented X3, Cooperative, No acute distress HEENT: Atraumatic, EOMI Lungs: Clear to auscultation, Normal air movement MUSCULOSKELETAL: Osteoarthritic changes both hands Neuro: Normal speech Psych/Mental Status: Mental status NL Skin: No significant lesion Diagnosis Problem List Problems Medical Problems: (1) Chest pain Status: Acute Assessment Assessment Problems Medical Problems: (1) Chest pain Status: Acute FINAL IMPRESSION: 1. Chest pain for evaluation. 2. Symptoms look like gastroesophageal reflux disease. 3. Insulin-dependent diabetes. 4. Hypertension. 5. Hyperlipidemia. PLAN: At this time, was admitted to the hospital. Cardiology was consulted. Serial cardiac enzymes, EKG, Added norvasc for bp control. sono positive for gall stones.may need surgery down the road May need EGD for GERD symptoms first if not improved with protonix. Problems: Plan Plan of Care Problems Medical Problems: (1) Chest pain Status: Acute Comment Review of Relevant I have reviewed the following items jayden (where applicable) has been applied. Labs Laboratory Tests Test 10/08/16 16:15 10/08/16 16:46 10/08/16 20:50 10/08/16 22:00 Troponin I Quantitative < 0.017 ng/mL (0.000-0.055) < 0.017 ng/mL (0.000-0.055) Glucose (Fingerstick) 87 mg/dL (70-99) 85 mg/dL (70-99) Test 10/09/16 04:00 10/09/16 07:17 White Blood Count 11.1 x10^3/uL (4.0-11.0) Red Blood Count 4.61 x10^6/uL (3.50-5.40) Hemoglobin 13.4 g/dL (12.0-15.5) Hematocrit 39.7 % (36.0-47.0) Mean Corpuscular Volume 86 fL (79-100) Mean Corpuscular Hemoglobin 29 pg (25-35) Mean Corpuscular Hemoglobin Concent 34 g/dL (31-37) Red Cell Distribution Width 13.2 % (11.5-14.5) Platelet Count 332 x10^3/uL (140-400) Neutrophils (%) (Auto) 64 % (31-73) Lymphocytes (%) (Auto) 28 % (24-48) Monocytes (%) (Auto) 7 % (0-9) Eosinophils (%) (Auto) 0 % (0-3) Basophils (%) (Auto) 0 % (0-3) Neutrophils # (Auto) 7.2 x10^3uL (1.8-7.7) Lymphocytes # (Auto) 3.1 x10^3/uL (1.0-4.8) Monocytes # (Auto) 0.8 x10^3/uL (0.0-1.1) Eosinophils # (Auto) 0.0 x10^3/uL (0.0-0.7) Basophils # (Auto) 0.0 x10^3/uL (0.0-0.2) Sodium Level 141 mmol/L (136-145) Potassium Level 4.2 mmol/L (3.5-5.1) Chloride Level 100 mmol/L (98-107) Carbon Dioxide Level 33 mmol/L (21-32) Anion Gap 8 (6-14) Blood Urea Nitrogen 12 mg/dL (7-20) Creatinine 0.6 mg/dL (0.6-1.0) Estimated GFR (Cockcroft-Gault) 122.6 Glucose Level 43 mg/dL (70-99) Calcium Level 10.4 mg/dL (8.5-10.1) Glucose (Fingerstick) 74 mg/dL (70-99) Medications Current Medications Aspirin (Ecotrin) 81 mg DAILYWBKFT PO Last administered on 10/09/16t 10:54; Start 10/09/16 at 08:00 Insulin Aspart (NovoLOG) 0-7 UNITS TIDWMEALS SQ ; Start 10/08/16 at 17:00 Insulin Detemir (Levemir) 20 units QHS SQ Last administered on 10/08/16 21:07 ; Start 10/08/16 at 21:00 Metformin HCl (Glucophage) 500 mg BIDWMEALS PO Last administered on 10/08/16 18:23; Start 10/08/16 at 17:00 Multi-Ingredient Mouthwash/Gargle (Gi Cocktail Single Dose) 30 ml PRN QID PRN SWSW CHEST PAIN; Start 10/08/16 at 15:45 Simvastatin (Zocor) 20 mg HS PO Last administered on 10/08/16 21:04; Start at 21:00 Vitals/I & O Vital Sign - Last 24 Hours 10/08/16 10/08/16 10/08/16 10/08/16 14:54 19:30 19:55 23:01 Temp 99.8 99.7 99.3 99.8 99.7 99.3 Pulse 85 80 85 Resp 18 18 20 B/P (MAP) 153/94 (113) 152/90 (110) 113/58 (76) Pulse Ox 95 96 O2 Delivery Room Air Room Air Room Air Room Air 10/09/16 10/09/16 10/09/16 10/09/16 02:26 07:14 08:00 10:53 Temp 99.2 98.2 98.6 99.2 98.2 98.6 Pulse 89 89 86 Resp 18 18 18 B/P (MAP) 115/62 (79) 112/68 (83) 118/65 (82) Pulse Ox 96 97 96 O2 Delivery Room Air Room Air Room Air Room Air 10/09/16 10:55 Pulse 79 B/P (MAP) 118/65 Intake and Output 10/08/16 10/08/16 10/09/16 15:00 23:00 07:00 Intake Total 300 ml 800 ml 220 ml Output Total 300 ml 900 ml 1000 ml Balance 0 ml -100 ml -780 ml PRATIK CONDE MD Oct 09, 2016 14:33
--- NOTE | 2016-10-11 14:27 | PDOC ---
Provider Note Provider Note Discharge summary dictated. #[id number] PRATIK CONDE MD Oct 11, 2016 14:27
--- NOTE | 2016-10-12 00:35 | DS ---
DATE OF DISCHARGE: 10/09/2016 DATE OF ADMISSION: 10/08/2016 DATE OF DISCHARGE: 10/09/2016 REASON FOR ADMISSION TO THE HOSPITAL: Noncardiac chest pain. CONSULTATIONS: 1. Cardiology. 2. General Surgery. PROCEDURES DONE: Abdominal sonogram. COMPLICATIONS NOTED: None. HOSPITAL COURSE: The patient is a 61-year-old female patient of Dr. Magalie Villatoro, has history of diabetes, hypertension and was having symptoms of heartburn, getting progressively worse, came to the Emergency Room. EKG, cardiac enzymes were negative. The patient had a sonogram of the abdomen, which shows presence of gallstones, was seen by General Surgery. The patient was feeling better, so it was felt that she needs to have an EGD outpatient and start on PPI. If symptoms do not improve, then consider gallbladder surgery. The patient is discharged. FINAL DIAGNOSES: 1. Chest pain secondary to gastroesophageal reflux disease. 2. Findings of gallstones. 3. Diabetes. 4. Hypertension. DISPOSITION: Home. DISCHARGE MEDICATIONS: See MRAD. Protonix 40 mg daily and then scheduled for EGD as outpatient. PRATIK CONDE MD DR: MELISSA/evita JOB#: [id number] / [id number] MAGALIE Duffy MD
== END 2016-10-09 17:37 | disposition home or self-care (01) ==
LOC: ER 07:35 → 2 SOUTH 09:50
PROVIDERS: ADMIT Internal Medicine; ATTEND Internal Medicine
DX: R07.89 Other chest pain (principal); E11.9 Type 2 diabetes mellitus without complications; I10 Essential (primary) hypertension; E78.5 Hyperlipidemia, unspecified; K21.9 Gastro-esophageal reflux disease without esophagitis; M19.90 Unspecified osteoarthritis, unspecified site; K80.20 Calculus of gallbladder without cholecystitis without obstruction; Z79.4 Long term (current) use of insulin; Z82.49 Family history of ischemic heart disease and other diseases of the circulatory system
CPT/HCPCS: 36415; 71010; 76700; 80048; 80061; 80076; 80307; 81001; 82553; 82962; 83036; 83690; 83735; 83880; 84443; 84484; 85025; 85610; 93005; 96365; 96366; 96372; 99285; G0378; J1815; J7060; G0379; G0479

== ENCOUNTER → 2016-12-02 | Outpatient (CLI) | payer BC ==
[~2016-12-02] MED LIST: AMLO5TAB2 PO; HYDR12.53 PO; INSU100I27 SQ; LISI40TA PO; METF500T PO; PANT40TA5 PO; SIMV20TA3 PO
--- NOTE | 2016-12-02 15:37 | RAD ---
AP and lateral views of the Chest 12/02/2016 2:00 AM Indication: PRE-OPERATIVE EVALUATION Comparison: None Findings: There is no focal consolidation or infiltrate identified. There is no effusion or pneumothorax. The cardiomediastinal silhouette and pulmonary vasculature are within normal limits. No osseous abnormality is identified. Impression: No evidence of acute cardiopulmonary process.
== END | disposition home or self-care (01) ==
LOC: RAD 12:17
PROVIDERS: ATTEND Internal Medicine
DX: Z01.818 Encounter for other preprocedural examination (principal)
CPT/HCPCS: 71020

== ENCOUNTER 2016-12-08 07:27 | Day surgery (SDC) | payer BC ==
[~2016-12-08] VITALS: Ht 152.4 cm; Wt 58.5 kg
[~2016-12-08 07:27] MED LIST changes: +ASPI-630 PO; +BUPIVACAINE-EPI 0.25%-1:200000 50 ML VIAL. ONE; +HYDROmorphone 2 MG/ML VIAL IV PRN; +INSU100I13 SQ; +IOHEXOL 300 MG/ML 50 ML VIAL. ONE; +IV RINGERS,LACTATED 1000ML 1,000 ML IV SCH; +LIDOCAINE 1% PF 2 ML VIAL. ID PRN; +METF500T4 PO; +ONDANSETRON PF 4 MG/2 ML VIAL. IV PRN; +PROCHLORPERAZINE 10 MG/2 ML VIAL. IV PRN; +SURGICEL HEMOSTAT 4X8 EACH. ONE; +fentaNYL PF VIAL 100 MCG/2 ML VIAL IV PRN
[2016-12-08] MEDS ORDERED: MIDAZOLAM HCL/PF 2 MG/2 ML VIAL. ONE (08:51)
[2016-12-08] MEDS ORDERED: DEXAMETHASONE SOD PHOS 20 MG/5 ML VIAL. ONE (08:51)
[2016-12-08] MEDS ORDERED: PROPOFOL 20 ML IV ONE (08:51)
[2016-12-08] MEDS ORDERED: ONDANSETRON PF 4 MG/2 ML VIAL. ONE (08:51)
[2016-12-08] MEDS ORDERED: LIDOCAINE 2% PF Vial for OR 5 ML VIAL. ONE (08:51)
[2016-12-08] MEDS ORDERED: ROCURONIUM 50 MG/5 ML VIAL. ONE (08:51)
[2016-12-08] MEDS ORDERED: fentaNYL PF VIAL 100 MCG/2 ML VIAL ONE (08:52)
[2016-12-08] MEDS ORDERED: GLYCOPYRROLATE 1 MG/5 ML VIAL. ONE (09:40)
[2016-12-08] MEDS ORDERED: NEOSTIGMINE 10 MG/10 ML VIAL. ONE (09:40)
[2016-12-08] MEDS ORDERED: SEVOFLURANE 31 TO 60 MINUTES. IH ONE (09:55)
[2016-12-08] MEDS ORDERED: PROCHLORPERAZINE 10 MG/2 ML VIAL. ONE (10:25)
--- NOTE | 2016-12-08 10:32 | PDOC4 ---
Operative Note Operative Note Date: 12/08/2016 Preoperative diagnosis: Chronic cholecystitis cholelithiasis Postoperative diagnosis: Same Procedure: Laparoscopic cholecystectomy Surgeon: Ronald Specimen: Gallbladder Dictation: Patient is a 61-year-old female is had right upper quadrant abdominal pain and postprandial nausea and an ultrasound showing gallstones the procedure of laparoscopic cholecystectomy was explained to the patient in detail was benefits were also discussed including bleeding infection injury to intra-abdominal contents possibly necessitating further or open operations. Alternatives to this procedure also discussed with the patient seemed understanding gave both verbal and written consent to have the procedure performed. Patient was taken to the operating room placed in supine position general anesthesia was initiated once patient was asleep her abdomen was prepped and draped in usual sterile fashion using ChloraPrep. Reviewed his history of a midline open incision for hysterectomy an area in the left upper quadrant was injected with quarter percent Marcaine with epinephrine incision made 11 blade scalpel and a 5 mm Visiport was attempted to be placed in this area although there was some difficulty secondary to adhesions's of this was aborted. An area in the right upper quadrant was injected with quarter percent Marcaine with epinephrine incisions made 11 blade scalpel and a Visiport was placed under direct visualization in the right upper quadrant without difficulty and a pneumoperitoneum was achieved. 5ml camera was placed within the abdomen abdomen was inspected she did have quite a few adhesions below the umbilicus from her previous surgery. There was a clear spot just above the umbilicus this was injected with quarter percent Marcaine with epinephrine incision made 11 blade scalpel and a 11 mm port was placed under direct visualization another 5 mm port was placed in the right upper quadrant and a 5 OmegaPort was placed in the epigastric area all under direct visualization. The dome of the gallbladder was grasped retracted cephalad the infundibulum the gallbladder was grasped retracted laterally exposing the triangle clothe adherent tissues the triangle are taken down bluntly dissection exposing the cystic duct and cystic artery both were doubly clipped and transected the gallbladder was taken off the liver with hook left cautery placed within an Endo Catch bag and removed from the umbilicus. Right upper quadrant was irrigated and suctioned dry hemostasis deemed to be appropriate and the pneumoperitoneum was reduced all ports were removed the fascial defect at the umbilicus closed [id number] Vicryl suture and skin was approximated all port sites 4 septic Monocryl. This all Steri-Strips and island dressings were applied patient was waken next made in the operating room taken to recovery in stable condition all sponge instrument needle counts listed as correct estimate blood loss 30 mL. MICHELLE CORTEZ MD Dec 08, 2016 10:32
--- NOTE | 2016-12-08 10:34 | DISCH ---
DISCHARGE INSTRUCTIONS Condition on Discharge Condition on Discharge: Stable Activity After Discharge Activity Instructions for Disc: Avoid exertion Other activity instructions: No lifting >20lbs for 2 weeks Diet after Discharge Diet after Discharge: Low Fat Wound Incision Care Other wound/incision instructi: May shower in 24 hours Contacting the after DC Call your doctor for: If your condition worsens Follow-Up Follow up with: Dr Cortez in 2 weeks MICHELLE CORTEZ MD Dec 08, 2016 10:34
[2016-12-08] MEDS ORDERED: OXYC-323 PO ×2 (11:22→11:24)
[2016-12-08] MEDS ORDERED: oxyCODONE/APAP 5/325 1 TAB TABLET PO PRN (11:30)
[2016-12-08 12:12] VITALS: BP 129/73
--- NOTE | 2016-12-09 13:45 | PATHOLOGY ---
PATHOLOGY REPORT * * * * * * * * FINAL DIAGNOSIS: Gallbladder, laparoscopic cholecystectomy: - Cholelithiasis. - Chronic cholecystitis. (JPM:therese; 12/09/2016) COMMENT: There is no evidence of malignancy. REPORT ELECTRONICALLY SIGNED BY: Yonaatn Padron M.D. DATE/TIME: 12/09/2016 13:44 * * * * * * * * GROSS PATHOLOGY: Received in formalin labeled "Benito Saavedra, gallbladder and contents," is a 7.2 x 2.9 x 1.9 cm, intact gallbladder with light pink, slightly vascular serosal surfaces. Opening the gallbladder reveals light faria, velvety mucosa and an average wall thickness of 0.2 cm. Calculi are present, measuring up to 1.1 cm in maximum dimension and no masses are noted grossly. Supervisor Powdered [employer] sections from the body and fundus are submitted along with the proximal margin in cassette A1. (TSD; 12/08/2016) INITIAL CPT CODE(S): A; 41318 Professional services performed by [facility] [place] [address] Technical services performed by [facility] at [address] [place] [address] [address], [place] [address]. SPECIMEN(S) RECEIVED: A.Gallbladder and contents CLINICAL HISTORY: Chronic cholecystitis with calculus PATIENT: BENITO SAAVEDRA /AGE: 5 1955 (Age: 61) PATIENT #: [id number] ALT CASE #: SPECIMEN COLLECTION DATE: 12/08/2016 SPECIMEN RECEIVED DATE: 12/08/2016 [facility] - [id number] [place] [address] - PHONE: [phone] * * * END OF REPORT * * *
== END 2016-12-08 12:28 | disposition home or self-care (01) ==
LOC: SURG 07:27
PROVIDERS: ATTEND Surgery
DX: K80.10 Calculus of gallbladder with chronic cholecystitis without obstruction (principal); I10 Essential (primary) hypertension; E78.5 Hyperlipidemia, unspecified; E11.9 Type 2 diabetes mellitus without complications; Z90.710 Acquired absence of both cervix and uterus; Z80.3 Family history of malignant neoplasm of breast; K21.9 Gastro-esophageal reflux disease without esophagitis; M19.90 Unspecified osteoarthritis, unspecified site; Z82.49 Family history of ischemic heart disease and other diseases of the circulatory system; Z79.4 Long term (current) use of insulin; Z88.8 Allergy status to other drugs, medicaments and biological substances
CPT/HCPCS: 47562; 82962; J0690; J0780; J1100; J2250; J2405; J2704; J2710; J3010; J3490; J7030; J7120; 88304; Q9967; J2001